=== PATIENT | female | born 1955 | race Caucasian/White ===

== ENCOUNTER 2016-03-31 09:04 | Day surgery (SDC) | payer OTHER ==
--- NOTE | 2016-03-31 10:39 | Operative Note ---
Surgeon/Diagnoses Surgeon/Butcher Or [employer] Maker(s) Date of procedure: 03/31/16 Surgeon: MD Xena Mejias Diagnoses Pre-op diagnosis: History of inflammatory colon polyps Screening colonoscopy Post-op diagnosis Same as preoperative diagnoses, with the addition of the following: Complex RIGHT colon polyp Procedure Procedure Procedure: Colonoscopy with polypectomy Indications: YE CAGLE is a 60 year-old Female with a history of inflammatory polyps noted last year on colonoscopy. Her bowel preparation was poor and she also had a tortuous/spastic colon and returns for short-term repeat colonoscopy. Essentially, this is a repeat screening colonoscopy secondary to limited visualization last year. Findings: The preparation relatively fair Fairly tortuous and spastic colon (improved versus last evaluation) Hemorrhoidal tags Complex/lobulated RIGHT colon polyp (snared) Procedure Description: After informed consent was obtained, the patient was taken to the endoscopy suite. IV sedation ensued after she was transferred to the LEFT lateral decubitus position. Digital rectal exam revealed no significant abnormality. She did have some hemorrhoidal tags. The colonoscope was placed in position. The entire colon was evaluated. Bowel preparation was relatively fair with irrigation and suctioning used to improve visualization. A complex lobulated polyp of the RIGHT colon was excised by way snare polypectomy. No additional lesions were noted. She did have a fairly tortuous and spastic colon; however, these findings were less pronounced versus prior evaluation. The colonoscope was carefully removed and the patient was transferred to recovery. EBL (ml): 1 Anesthesia: IV sedation with 9 mg of Versed and 100 g of fentanyl Complications: No immediate Specimens: Complex lobulated RIGHT colon polyp Disposition Disposition: Stable to recovery from where she will be discharged home. She will follow-up in one week. Repeat colonoscopy is pending pathology. If this complex lobulated polyp is not adenomatous and is similar to her prior inflammatory polyps, repeat colonoscopy can be in 3-5 years. If this complex lobulated polyp is adenomatous, repeat colonoscopy should be between 1-2 years (with particular attention to the RIGHT colon and entire area in and around the ileocecal valve). at 1038
[2016-03-31 11:31] VITALS: BP 111/70
== END 2016-03-31 11:12 | disposition home or self-care (01) ==
LOC: SDC 09:04
PROVIDERS: Surgery
PROC: 0DBF8ZX Excision of Right Large Intestine, Via Natural or Artificial Opening Endoscopic, Diagnostic (ICD-10-PCS; principal; 2016-03-31 09:30)
DX: Z12.11 Encounter for screening for malignant neoplasm of colon (principal); Z09 Encounter for follow-up examination after completed treatment for conditions other than malignant neoplasm; Z86.010 Personal history of colon polyps; K63.5 Polyp of colon